=== PATIENT | male | born 1955 | race Caucasian/White ===

== ENCOUNTER 2019-02-20 20:12 | Emergency (ER) | payer MEDICARE, OTHER ==
[~2019-02-20] VITALS: Ht 172.7 cm; Wt 108.9 kg
--- NOTE | 2019-02-20 20:14 | ED.ADGEN ---
Past History Past Medical History: High Cholesterol Past Surgical History: Knee Replacement Alcohol Use: Occasionally Drug Use: None Adult General Chief Complaint Chief Complaint ".. I was planting tomato plants today.. but tonight I noticed .. I got this purple spot here on my Rt eye.. I see fine.. but the is bruise came up..." HPI HPI Patient is a 63 year old male who presents with above hx and complaints Rt eye medial canthus small ecchymosis area. No visual changes. Patient does take a daily aspirin. Patient is not taking other anticoagulants. No history of coagulopathy. Does not have specific history of trauma. Patient normally healthy. Patient retired . No recent travel. No history immunosup pression. Visual acuity per nursing- ( no acute changes). Review of Systems Review of Systems Constitutional: Denies fever or chills [] Eyes: Denies change in visual acuity, redness, or eye pain []complains of ecchymosis area right medial canthus HENT: Denies nasal congestion or sore throat [] Respiratory: Denies cough or shortness of breath [] Cardiovascular: No additional information not addressed in HPI [] GI: Denies abdominal pain, nausea, vomiting, bloody stools or diarrhea [] : Denies dysuria or hematuria [] Musculoskeletal: Denies back pain or joint pain [] Integument: Denies rash or skin lesions [] Neurologic: Denies headache, focal weakness or sensory changes [] Endocrine: Denies polyuria or polydipsia [] All other systems were reviewed and found to be within normal limits, except as documented in this note. Family History Family History Noncontributory Current Medications Current Medications See nursing for home meds Allergies Allergies Allergies Coded Allergies Type Severity Reaction Last Updated Verified No Known Drug Allergies 06/22/16 No Physical Exam Physical Exam Constitutional: Well developed, well nourished, no acute distress, non-toxic appearance. [] HENT: Normocephalic, atraumatic, bilateral external ears normal, oropharynx moist, no oral exudates, nose normal. [] Eyes: PERRLA, EOMI, conjunctiva normal, no discharge. [] Right medial canthus hematoma-small Neck: Normal range of motion, no tenderness, supple, no stridor. [] Cardiovascular:Heart rate regular rhythm, no murmur [] Lungs & Thorax: Bilateral breath sounds clear to auscultation [] Abdomen: Bowel sounds normal, soft, no tenderness, no masses, no pulsatile masses. [] Obese Skin: Warm, dry, no erythema, no rash. [] Back: No tenderness, no CVA tenderness. [] Extremities: No tenderness, no cyanosis, no clubbing, ROM intact, no edema. [] Right shoulder scar Neurologic: Alert and oriented X 3, normal motor function, normal sensory function, no focal deficits noted. [] Psychologic: Affect normal, judgement normal, mood normal. [] EKG EKG [] Radiology/Procedures Radiology/Procedures [] Course & Med Decision Making Course & Med Decision Making Pertinent Labs and Imaging studies reviewed. (See chart for details) Hold aspirin 2 days. Avoid strenuous activity. Use ice packs. Sleeps with head elevated tonight. Return if any concerns. Follow-up primary care. [] Final Impression Final Impression 1. Rt eye- Hematoma[] medial canthus Dragon Disclaimer Dragon Disclaimer This electronic medical record was generated, in whole or in part, using a voice recognition dictation system. Discharge Summary Visit Information Final Diagnosis Problems Medical Problems: (1) Ecchymosis of eye Status: Acute Brief Hospital Course Allergies Allergies Coded Allergies Type Severity Reaction Last Updated Verified No Known Drug Allergies 06/22/16 No Brief Hospital Course Mr. Ross is a 63 old male who presented with right medial canthus ecchymosis. Discharge Information Condition at Discharge: Stable Disposition/Orders: D/C to Home Dragon Disclaimer This chart was dictated in whole or in part using Voice Recognition software in a busy, high-work load, and often noisy Emergency Department environment. It may contain unintended and wholly unrecognized errors or omissions. COSMO NICE MD February 20, 2019 20:14
[2019-02-20 20:15] VITALS: BP 113/74
== END 2019-02-20 20:50 | disposition home or self-care (01) ==
LOC: ER 20:15
DX: S00.11XA Contusion of right eyelid and periocular area, initial encounter (principal); E78.00 Pure hypercholesterolemia, unspecified; X58.XXXA Exposure to other specified factors, initial encounter; Y93.89 Activity, other specified; Y92.89 Other specified places as the place of occurrence of the external cause; Y99.8 Other external cause status
CPT/HCPCS: 99282

== ENCOUNTER → 2020-07-03 | Outpatient (CLI) | payer MEDICARE, OTHER ==
--- NOTE | 2020-07-03 14:25 | RAD ---
Chest, PA and Lateral: Technique: PA and lateral views of the chest were obtained. History: Chronic cough. Comparison: None. Findings: The heart and pulmonary vasculature appear within normal limits. The lungs are clear. The pleural margins are clear. Impression: No acute chest process is seen. Electronically signed by: Mario Richey MD (07/03/2020 2:22 PM) [id number]
--- NOTE | 2020-07-03 16:36 | RAD ---
LUMBAR SPINE 2-3V 07/03/2020 11:39 AM INDICATION: Lower back pain for years. COMPARISON: None available. TECHNIQUE: 3 views of the lumbar spine are provided. FINDINGS/ IMPRESSION: 1. There are 5 nonrib-bearing lumbar vertebral bodies. Minimal retrolisthesis of L1 on L2, L2 on L3 and L3 on L4. Minimal anterolisthesis of L5 on S1. Mild disc height loss at L1-L2 and L2-L3 and L5-S1. 2. No acute compression fracture is identified. Mild intramarginal osteophytosis. Transverse processes and posterior elements appear intact. 3. Atherosclerotic changes of the abdominal aorta are present. LAP-BAND is noted. Cystectomy changes are present. Prostate calcifications are suspected. Electronically signed by: Sondra Aguillon MD (07/03/2020 4:34 PM) [id number]
== END | disposition home or self-care (01) ==
LOC: DXRAD 11:24
PROVIDERS: ATTEND Family Medicine
DX: M43.17 Spondylolisthesis, lumbosacral region (principal); R05 Cough; M25.78 Osteophyte, vertebrae; I70.0 Atherosclerosis of aorta; Z90.49 Acquired absence of other specified parts of digestive tract
CPT/HCPCS: 71046; 72100

== ENCOUNTER → 2022-01-17 | Outpatient (CLI) | payer MEDICARE, OTHER ==
--- NOTE | 2022-01-17 08:10 | RAD ---
EXAMINATION: XR CHEST 2V CLINICAL HISTORY: COUGH, X 3 WEEKS. EXAM DATE/TIME: 01/17/2022 7:49 AM COMPARISON: 07/03/2020 FINDINGS: Lines, Tubes, and Devices: None. Cardiomediastinal Silhouette: Normal heart size. Aortic atherosclerotic calcification. Lungs and Pleura: Mild bibasilar opacities, greater on the right. No evidence of pleural effusion. Pu lmonary vasculature unremarkable. Bones and Soft Tissues: Degenerative changes in the thoracic spine. IMPRESSION: Mild bibasilar airspace disease, greater on the right. Electronically signed by: Benito Franco DO (01/17/2022 8:07 AM) [id number]
== END ==
LOC: RAD 07:42
PROVIDERS: ATTEND Nurse Practitioner Family
DX: R05.8 Other specified cough (principal); M47.814 Spondylosis without myelopathy or radiculopathy, thoracic region; I70.0 Atherosclerosis of aorta
CPT/HCPCS: 71046